=== PATIENT | male | born 1985 | race Caucasian/White ===

== ENCOUNTER 2017-08-22 20:27 | Emergency (ER) | payer OTHER ==
--- NOTE | 2017-08-22 20:29 | ED Physician Documentation ---
History of Present Illness - Stated complaint Stated Complaint: STREP TEST - History obtained from History obtained from: Patient - History of Present Illness Timing: Yesterday (His whole family has impetigo, all of the kids and the . He has a sore throat and the nasal lesion on the right side.) Review of Systems Constitutional: denies: Fever, Chills, Myalgias Ears: denies: Ear pain Nose: reports: Rhinorrhea / runny nose Throat: reports: Sore throat Respiratory: denies: Dyspnea, Cough PD PAST MEDICAL HISTORY - Present Medications Home Medications: Ambulatory Orders Medication Instructions Recorded Confirmed Cephalexin [Keflex] 500 mg PO QID #20 capsule 08/22/17 PD ED PE NORMAL - Vitals Vital signs reviewed: Yes - General General: Alert and oriented X 3, No acute distress - HEENT HEENT: Pharynx benign, Other (There is a little honey colored drainage from the left nares, no obvious lesion though. Oropharynx looks normal. No adenopathy.) - Neck Neck: Supple, no meningeal sign - Neuro Neuro: Alert and oriented X 3, Normal speech Departure - Departure Disposition: 01 Home, Self Care Clinical Impression: Impetigo Condition: Good Record reviewed to determine appropriate education?: Yes Prescriptions: Cephalexin [Keflex] 500 mg PO QID #20 capsule Comments: See downtime charting for discharge instructions
== END 2017-08-22 20:46 | disposition home or self-care (01) ==
LOC: ED 20:27
DX: L01.00 Impetigo, unspecified (principal)
CPT/HCPCS: 99281; 99283

== ENCOUNTER 2017-11-08 12:57 | Emergency (ER) | payer OTHER ==
[2017-11-08] MEDS ORDERED: KETOROLAC 60 MG/2 ML VIAL IM STA (13:31)
[2017-11-08] MEDS ORDERED: DEXAMETHASONE 10 MG/ML VIAL PO STA (13:32)
--- NOTE | 2017-11-08 13:35 | ED Physician Documentation ---
PD HPI BACK INJURY - Stated complaint Stated Complaint: BACK INJ - History obtained from History obtained from: Patient - History of Present Illness Location: Both, Lower Type of injury: Other (states lifting an object up a ramp and felt a pop in his back. states pain radiated down the legs and he laid down. Feels better now.) Timing - onset: How many hours ago (2) Timing - duration: Hours (2) Timing - details: Abrupt onset Pain level max: 10 Pain level now: 8 Quality: Pain, Spasm Improved by: Rest Worsened by: Moving, Palpating Associated symptoms: No: Fever, Weakness, Numbness, Incontinent of urine, Unable to urinate, Hematuria, Incontinent of stool Contributing factors: No: Anticoagulated, Prior back surgery Similar symptoms before: Has not had sx before Recently seen: Not recently seen Review of Systems Constitutional: denies: Fever, Chills Ears: denies: Ear pain Nose: denies: Rhinorrhea / runny nose, Congestion Throat: denies: Sore throat Cardiac: denies: Chest pain / pressure Respiratory: denies: Cough GI: denies: Abdominal Pain, Nausea, Vomiting, Diarrhea Skin: denies: Rash Musculoskeletal: reports: Back pain. denies: Neck pain Neurologic: denies: Focal weakness, Numbness, Headache PD PAST MEDICAL HISTORY - Past Medical History Past Medical History: Yes Cardiovascular: Other Respiratory: Asthma Other Past Medical History: pericarditis - Past Surgical History Past Surgical History: No - Present Medications Home Medications: Ambulatory Orders Medication Instructions Recorded Confirmed Cyclobenzaprine [Flexeril] 10 mg PO TID PRN #20 tablet 11/08/17 Meloxicam [Mobic] 15 mg PO DAILY PRN #20 tablet 11/08/17 - Allergies Allergies/Adverse Reactions: Allergies Allergy/AdvReac Type Severity Reaction Status Date / Time No Known Drug Allergies Allergy Verified 11/08/17 13:07 - Social History Does the pt smoke?: No Smoking Status: Never smoker Does the pt drink ETOH?: Yes - Immunizations Immunizations are current?: Yes PD ED PE NORMAL - Vitals Vital signs reviewed: Yes - General General: Alert and oriented X 3, No acute distress - HEENT HEENT: Moist mucous membranes - Neck Neck: Supple, no meningeal sign - Cardiac Cardiac: RRR, Strong equal pulses - Respiratory Respiratory: No respiratory distress, Clear bilaterally - Abdomen Abdomen: Soft, Non tender, Non distended - Back Back: Other (No midline tenderness to palpation. No step-off or deformity. NVI. paraspinal muscle spasm B. ) - Derm Derm: Warm and dry - Extremities Extremities: Other (normal bilateral lower extremity patellar and ankle jerk reflexes. Normal great toe extension bilaterally. no saddle anesthesia) - Neuro Neuro: Alert and oriented X 3, No motor deficit, No sensory deficit Results - Vitals Vitals: Vital Signs - 24 hr 11/08/17 11/08/17 13:03 13:57 Temperature 37 C Heart Rate 78 86 Respiratory 18 18 Rate Blood Pressure 150/96 H 140/86 H O2 Saturation 100 97 Oxygen O2 Source Room air PD MEDICAL DECISION MAKING - ED course Complexity details: reviewed results, re-evaluated patient, considered differential (no cauda equina, no spinal epidural abscess, no fracture, no aortic dissection or evidence of aneursym rupture), d/w patient ED course: Patient is a 32-year-old male with low back strain. No evidence of cauda equina, epidural abscess. Will place on pain medication and muscle relaxants for home. No IV drug use. No fevers. No midline tenderness. No step-off or deformity. Patient counseled regarding signs and symptoms for which I believe and urgent re-evaluation would be necessary. Patient with good understanding of and agreement to plan and is comfortable going home at this time This document was made in part using voice recognition software. While efforts are made to proofread this document, sound alike and grammatical errors may occur. - Sepsis Event Vital Signs: Vital Signs - 24 hr 11/08/17 11/08/17 13:03 13:57 Temperature 37 C Heart Rate 78 86 Respiratory 18 18 Rate Blood Pressure 150/96 H 140/86 H O2 Saturation 100 97 Oxygen O2 Source Room air Departure - Departure Disposition: 01 Home, Self Care Clinical Impression: Low back strain Qualifiers: Encounter type: initial encounter Qualified Code(s): S39.012A - Strain of muscle, fascia and tendon of lower back, initial encounter Condition: Good Instructions: ED Low Back Pain Injury Follow-Up: Provider,Other [Primary Care Provider] - Within 1 week Prescriptions: Cyclobenzaprine [Flexeril] 10 mg PO TID PRN #20 tablet PRN Reason: Spasms Meloxicam [Mobic] 15 mg PO DAILY PRN #20 tablet PRN Reason: pain Comments: Return if you worsen. This should improve over the next few days. Rest. Forms: Activity restrictions Discharge Date/Time: 11/08/17 13:57
[2017-11-08] MEDS ORDERED: CHERRY SYRUP 10 ML UDC PO ONE (13:36)
[2017-11-08 14:00] VITALS: BP 140/86
== END 2017-11-08 13:57 | disposition home or self-care (01) ==
LOC: ED 12:57
DX: S39.012A Strain of muscle, fascia and tendon of lower back, initial encounter (principal); X50.0XXA Overexertion from strenuous movement or load, initial encounter
CPT/HCPCS: 96372; 99283; A9270